=== PATIENT | female | born 1960 | race Caucasian/White ===

== ENCOUNTER 2018-03-03 07:30 | Day surgery (SDC) | payer OTHER ==
[~2018-03-03 07:30] MED LIST: FENTANYL 100MCG/2ML SOL ONE; PROPOFOL 500 MG/50 ML EMU IV ONE
[2018-03-03] MEDS ORDERED: PROPOFOL 500 MG/50 ML EMU IV ONE (09:16)
[2018-03-03 10:00] VITALS: RESP 16
[2018-03-03 10:18] VITALS: BP 106/62; PULSE 63; TEMP 97.2; O2SAT 99
== END 2018-03-03 10:48 | disposition home or self-care (01) | DRG 812 ==
LOC: SURG 07:30
PROVIDERS: ATTEND Internal Medicine Gastroenterology
DX: D50.9 Iron deficiency anemia, unspecified (principal); K22.2 Esophageal obstruction; K57.32 Diverticulitis of large intestine without perforation or abscess without bleeding; R13.10 Dysphagia, unspecified; K44.9 Diaphragmatic hernia without obstruction or gangrene; L53.8 Other specified erythematous conditions; L83 Acanthosis nigricans; K64.4 Residual hemorrhoidal skin tags; K64.8 Other hemorrhoids; Z12.11 Encounter for screening for malignant neoplasm of colon
CPT/HCPCS: 99001; J2001; J3010; J2704

== ENCOUNTER 2019-05-08 14:25 | Emergency (ER) | payer OTHER ==
[2019-05-08 14:45] VITALS: RESP 20; TEMP 97.4; O2SAT 100
[2019-05-08] MEDS ORDERED: PREDNISONE 20 MG TAB PO ONE (15:05)
[2019-05-08] MEDS ORDERED: PREDNISONE 20 MG TAB ONE (15:06)
[2019-05-08 15:22] VITALS: BP 139/82; PULSE 72
== END 2019-05-08 15:18 | disposition home or self-care (01) | DRG 914 ==
LOC: ED 14:25
DX: T14.8XXA Other injury of unspecified body region, initial encounter (principal)
CPT/HCPCS: 99282; A9270-GY